=== PATIENT | female | born 1995 | race Caucasian/White ===

== ENCOUNTER 2016-11-30 01:56 | Inpatient (IN) | payer OTHER, MEDICAID ==
[~2016-11-30] VITALS: Ht 170.2 cm; Wt 79.8 kg
[2016-11-30] VITALS (7 sets, daily range): BP systolic 107–121; BP diastolic 57–90; PULSE 67–116; RESP 16–18; TEMP 97.4–98.6; O2SAT 93–97
--- NOTE | 2016-11-30 02:10 | NUR ---
Placed in room 08 . Placed on night monitor, blood pressure machine and pulse oximeter. To gown for exam. Side rails up. Report given to ROVERTO Antoine.
--- NOTE | 2016-11-30 02:15 | NUR ---
Patient brought in by mother, c/o cough x 1 week, patient cough, dry , lung sounds clear. Patient has hx of seizures, currently taking amoxicillin for an ear infection. No acute distress noted. Will continue to monitor.
--- NOTE | 2016-11-30 02:20 | NUR ---
ER at bedside examining patient.
[2016-11-30] MEDS ORDERED: PROMETHAZINE 6.25 MG/ CODEINE 10 MG/ 5 ML PO ONE (02:30)
--- NOTE | 2016-11-30 02:45 | NUR ---
Patient O2 88% on RA. informed. verbal order for 5L mask or 2L NC. Mother states she prefers mask over NC.
[2016-11-30] MEDS ORDERED: NACL 0.9% 1,000 ML IV ONE (02:59)
--- NOTE | 2016-11-30 03:00 | NUR ---
Patient O2 99%, tolerating O2 well. Will continue to monitor.
[2016-11-30 03:32] LABS: BILIRUBIN,URINE NEGATIVE (NEGATIVE); CLARITY/URINE CLEAR (CLEAR); COLOR,URINE YELLOW (YELLOW); GLUCOSE,URINE NEGATIVE (NEGATIVE); KETONES,URINE NEGATIVE (NEGATIVE); LEUKOCYTE ESTERASE ,URINE NEGATIVE (NEGATIVE); NITRITE, URINE NEGATIVE (NEGATIVE); PROTEIN URINE NEGATIVE (NEGATIVE)
[2016-11-30 03:51] LABS: BLOOD, URINE TRACE (NEGATIVE)
[2016-11-30 03:52] LABS: BACTERIA,URINE FEW /HPF (None Seen); RBC,URINE 0-3 /HPF (0-3); WBC,URINE 0-3 /HPF (0-3)
[2016-11-30 03:53] LABS: MUCUS,URINE None Seen /LPF (None Seen)
--- NOTE | 2016-11-30 03:55 | NUR ---
# 20 gauge angiocath placed to R AC. Use of asceptic technique. Opsite placed over site. Blood return noted. Blood for lab drawn from site. Two patient identifiers used. Flushed with 10 cc of normal saline. No evidence of infiltration noted. Patient tolerated well.
[2016-11-30 04:13] LABS: HEMATOCRIT 30.4 % (36-48); HEMOGLOBIN 10.4 g/dL (12.0-16.0); MEAN CORPUSCULAR HEMOGLOBIN 30 pg (27-31); MEAN CORPUSCULAR HGB CONC 34 % (32-36); MEAN CORPUSCULAR VOLUME 88 fL (79.0-98.0)
[2016-11-30] MEDS ORDERED: cefTRIAXone 1 GM IVPB PREMIX 50 ML IV ONE (04:15)
[2016-11-30 04:19] LABS: PLATELET COUNT (AUTO) 115 K/uL (130-430); RED BLOOD CELL COUNT(AUTO) 3.47 MIL/uL (4.2-6.2); RED CELL DISTRIBUTION WIDTH 12.5 % (9.0-15.0); WHITE BLOOD COUNT (AUTO) 7.6 K/uL (4.8-10.8)
[2016-11-30 04:20] LABS: CREATININE 0.66 mg/dL (0.55-1.30); POTASSIUM 3.3 mmol/L (3.5-5.1)
[2016-11-30 04:25] LABS: ALBUMIN 2.6 g/dL (3.4-4.8); TOTAL BILIRUBIN 0.3 mg/dL (0.0-1.0); TOTAL PROTEIN, SERUM 6.7 g/dL (6.4-8.3)
[2016-11-30 05:00] LABS: BAND % (MANUAL) 10 % (0-6); LYMPHOCYTES % (MANUAL) 27 % (20-46); MONOCYTES % (MANUAL) 11 % (0-11)
[2016-11-30 05:01] LABS: BASOPHILS % (MANUAL) 0 % (0-2); EOSINOPHILS % (MANUAL) 0 % (0-7)
[2016-11-30] MEDS ORDERED: ACETAMINOPHEN 325 MG TABLET PO PRN (05:45)
[2016-11-30] MEDS ORDERED: LEVALBUTEROL HCL 0.63 MG/3 ML VIAL.NEB IH ONE (06:00)
--- NOTE | 2016-11-30 06:12 | NUR ---
Transfer to [facility]. IV present no sign or symptom of infiltration.
--- NOTE | 2016-11-30 06:18 | NUR ---
ADMISSION NOTE Received patient from ER via [facility] under the care of Dr. Lewis. Patient admitted with diagnosis of Pneumonia. Patient is awake, alert, oriented X 3. Patient oriented to hospital room, call light, toileting, pain management and safety-teach back done.Mother at bedside. Patient informed that her nurse will be Vanesa LAYNE and that their room number is [id number]. Call light within reach.Keep comfortable.
--- NOTE | 2016-11-30 06:30 | NUR ---
Medication reconciliation completed with information provided by patient. Any prior medication reconciliation on file was reviewed and corrected.
[2016-11-30] MEDS ORDERED: DEPL250/5 PO ×2 (06:31→10:23)
[2016-11-30] MEDS ORDERED: CLON0.5T4 PO (06:31)
--- NOTE | 2016-11-30 06:40 | NUR ---
COLLECTION OF ADMISSION DATA,PHYSICAL ASSESSMENT /PNA /FLU DATA WERE DONE, ORIENTED TO TO ROOM SET UP TO MOM AND PATIENT.DROWSY BUT ANSWER SIMPLE QUESTIONS.
[2016-11-30] MEDS ORDERED: LEVOFLOXACIN 500 MG/D5W 100 ML IV SCH (07:00)
--- NOTE | 2016-11-30 07:20 | NUR ---
IVF STARTED TO RIGHT AC. SITE CLEAR.
--- NOTE | 2016-11-30 07:35 | NUR ---
REPORT GIVEN TO ROVERTO GUERRERO.
[2016-11-30] MEDS: 0.45% NACL 1,000 ML IV SCH ×3 (07:38→21:21)
--- NOTE | 2016-11-30 08:00 | NUR ---
initial notes rec patient sleep but arousable to stimuli.mother at the bedside at attend patient needs when needed.ivf infusing well on the r ac. no infiltration noted or s/c of infection. pt wit padded rails to prevent injury from seizure. voiding freely and assisted by mom to the br if needed. bed in low position and side rails up and locked. mother knows when to call for assistance .
[2016-11-30] MEDS: ALBUTEROL SULFATE 0.083% 2.5 MG/3 ML VIAL.NEB INH SCH ×2 (08:31→17:17)
--- NOTE | 2016-11-30 09:37 | NUR ---
Nutrition Update James Scale 18 noted. Pt admitted for pneumonia. Diet: regular BMI: 27.6 kg/m2 RD to follow per nutrition care standards.
--- NOTE | 2016-11-30 10:00 | NUR ---
rounds seen by dr ramirez and with orders. padded rails in placed. sleeps at intervals.
--- NOTE | 2016-11-30 10:14 | NUR ---
PULMONARY CONSULT Spoke with Anita regarding request for consultation with Dr. Candelario ([phone]) for reason: pneumonia.
[2016-11-30] MEDS ORDERED: methylPREDNISolone SOD SUCC/PF 62.5 MG/ML VIAL IVP ONE (10:15)
--- NOTE | 2016-11-30 11:07 | NUR ---
PATIENTS MOTHER REFUSED ABG... DR DE LA FUENTE AWARE AT THIS TIME
[2016-11-30] MEDS ORDERED: VALPROIC ACID ORAL SYRUP 250 MG/5 ML UDC PO SCH ×2 (12:00→21:00)
--- NOTE | 2016-11-30 12:00 | NUR ---
rounds ambulated to the br by mom and chevy well. no sob noted. call light within reached. pt's sister came and brought meds from home. will start home meds once cleared by pharmacy.
--- NOTE | 2016-11-30 13:00 | NUR ---
MEDS GIVEN MOTHER BROUGHT THE MEDS AND WANTED TO GIVE THE MEDS JULIO. EXPLAINED TO MOTHER THAT MEDS NEEDS TO BE VERIFY BY PHARMACIST. MEDS GIVEN BY MOTHER, KLONOPIN 1/4 TAB AND DEPAKENE 5CC GIVEN TO PT BY MOTHER.
--- NOTE | 2016-11-30 14:00 | NUR ---
rounds coughing at intervals when awake , no sob noted. mother and dad at bedside. turned repositioned for comfort.
[2016-11-30] MEDS ORDERED: clonazePAM 0.5 MG TABLET PO SCH (15:00)
--- NOTE | 2016-11-30 16:00 | NUR ---
rounds asleep at this time and meds not given. mom stated to wait till patient wakes up. resting comfortably.
[2016-11-30] MEDS: methylPREDNISolone SOD SUCC/PF 62.5 MG/ML VIAL IVP SCH ×2 (16:52→21:16)
--- NOTE | 2016-11-30 18:30 | NUR ---
closing notes pt still with productive cough at intervals. no sob noted. pt woke up and mom gave the meds with supervision. non verbally responsive but selective when she wants to say something. refused o2 at this time and pulse ox was attached and sat bet 92 to 96 %.
[2016-11-30] MEDS: KLONOPIN 0.5 MG PO SCH ×2 (19:10→23:23)
[2016-11-30] MEDS: [UNRECOGNIZED DRUG - OTHER] PO SCH ×2 (19:11→23:25)
--- NOTE | 2016-11-30 20:00 | NUR ---
INITIAL NOTES: PT IS AWAKE, ALERT; TALKED TO THE PT , BUT NOTICED THAT SHE IS NOT TALKING BACK , AT THE SAME TIME PT IS TALKING TO HER MOTHER ; PER MOTHER PT IS SHY ; VITALS ARE STABLE ; DENIED ANY PAIN ; DENIED ANY SOB ; ON ROOM AIR AT THIS TIME, SAT IS 94% , PER MOM PTS NOSE IS VERY UNCOMFORTABLE ; WILL CONTINUE TO MONITOR AND IF NEEDED WILL PLACE PT TO USE O2 2 L NC ; IV FLUID IS INFUSING WELL ; MOTHER AT BEDSIDE ALL TIMES ; WILL CONTINUE TO MONITOR.
[2016-11-30] MEDS: LACTOBACILLUS RHAMNOSUS GG 1 CAP CAPSULE PO SCH (21:15)
--- NOTE | 2016-11-30 21:20 | NUR ---
MEDICATION: DUE MEDS GIVEN EXCEPT KLONOPIN AND VALPROIC ACID ; PER MOTHER PT RECEIVED HER DOSE AT 1910 EARLIER AND NEXT DOSE ALWAYS SHE GIVE AT 5 . WILL GIVE PER PTS SCHEDULE AT HOME
--- NOTE | 2016-11-30 23:25 | NUR ---
MEDICATION: DUE KLONOPIN AND VALPROIC ACIDS ARE GIVEN PER MOTHERS REQUEST .PT IS COMFORTABLE.PT IS ON O2 2L NC AT THIS TIME; WILL CONTINUE TO MONITOR.
[2016-12-01] VITALS: BP 119/72; PULSE 74; RESP 17; TEMP 97.8; O2SAT 100
--- NOTE | 2016-12-01 01:25 | NUR ---
RN ROUNDS: PT IS SLEEPING, MOTHER AT BEDSIDE ; NOT IN ANY ACUTE DISTRESS; WILL CONTINUE TO MONITOR.
--- NOTE | 2016-12-01 03:10 | NUR ---
RN ROUNDS: PT IS SLEEPING; MOTHER AT BEDSIDE ;NO IN ANY DISTRESS; WILL CONTINUE TO MONITOR.
[2016-12-01 04:20] VITALS: BP 117/68; PULSE 76; RESP 16; TEMP 98.6; O2SAT 100
--- NOTE | 2016-12-01 05:06 | NUR ---
RN ROUNDS: PT IS SLEEPING COMFORTABLY ; NOT IN ANY ACUTE DISTRESS; WILL CONTINUE TO MONITOR.
[2016-12-01] MEDS: methylPREDNISolone SOD SUCC/PF 62.5 MG/ML VIAL IVP SCH ×3 (06:03→23:31)
--- NOTE | 2016-12-01 06:15 | NUR ---
RN NOTES: PT IS SLEEPING COMFORTABLY ; NOT IN ANY ACUTE DISTRESS; DUE SOLUMEDROL GIVEN , WILL CHECK WITH PHARMACY IS IT OK TO GIVE LEVAQUIN AT THIS TIME SINCE YESTERDAYS DOSE WAS LATE .
[2016-12-01] MEDS: 0.45% NACL 1,000 ML IV SCH ×2 (06:45→09:48)
--- NOTE | 2016-12-01 06:50 | NUR ---
RN NOTES: TALKED WITH FEDERICO THE PHARMACIST ; FEDERICO ASKED TO HOLD LEVAQUIN AND HE WILL CHANGE THE TIME .
[2016-12-01] MEDS: ALBUTEROL SULFATE 0.083% 2.5 MG/3 ML VIAL.NEB INH SCH ×2 (07:16→13:59)
--- NOTE | 2016-12-01 07:25 | NUR ---
CLOSING NOTES: PT IS AWAKE, NOT IN ANY ACUTE DISTRESS; NO SEIZURE ACTIVITIES NOTED DURING THIS SHIFT ; MOTHER AT BEDSIDE . REPORT GIVEN TO RN AT BEDSIDE .
[2016-12-01 08:00] VITALS: BP 133/67; PULSE 96; RESP 18; TEMP 98; O2SAT 92
--- NOTE | 2016-12-01 08:00 | NUR ---
initial notes rec patient asleep wth mom at bedside. ivf infusing well on the r ac/ no infiltration noted. coughing at intervals with o2 at 2 liters via nasal cannula. padded rails is off as per mom stated that she does not have episode of seizures. seen by dr ramirez. bed in low position and side rails up and locked. call light within reached by mother and calls for assistance as needed.
--- NOTE | 2016-12-01 10:27 | NUR ---
CONSULTATION CALLED: REASON FOR CONSULTATION: PNEUMONIA WAS CONSULT CALLED: YES PERSON WHO WAS NOTIFIED: MOLLY CONSULTING PHYSICIAN: KASEY
--- NOTE | 2016-12-01 10:30 | NUR ---
rounds meds not given at scheduled time. mother will call when patient is awake and mother's requested time. ambulating with pt on the hallway
[2016-12-01] MEDS: guaiFENesin 200 MG/CODEINE 20 MG/ 10 ML UDC PO PRN ×2 (11:58→23:43)
[2016-12-01] MEDS: LACTOBACILLUS RHAMNOSUS GG 1 CAP CAPSULE PO SCH ×2 (11:58→23:47)
[2016-12-01] MEDS: [UNRECOGNIZED DRUG - OTHER] PO SCH ×4 (11:59→23:48)
[2016-12-01] MEDS: KLONOPIN 0.5 MG PO SCH ×3 (12:00→21:18)
[2016-12-01 12:30] VITALS: BP 126/67; PULSE 64; RESP 17; TEMP 97.6; O2SAT 94
--- NOTE | 2016-12-01 13:00 | NUR ---
rounds sitting at the recliner and mother at bedside.no sob noted.
--- NOTE | 2016-12-01 14:00 | NUR ---
rounds up sitting in a recliner chair and chevy well. non productive cough at intervals noted. no sob noted.
[2016-12-01 16:00] VITALS: BP 123/67; PULSE 89; RESP 19; TEMP 97.6; O2SAT 96
--- NOTE | 2016-12-01 16:00 | NUR ---
rounds pt asleep, mom at bedside.
--- NOTE | 2016-12-01 18:00 | NUR ---
rounds seen by dr garvey and with orders.
[2016-12-01] MEDS: LEVOFLOXACIN 500 MG/D5W 100 ML IV SCH (18:12)
--- NOTE | 2016-12-01 19:00 | NUR ---
closing notes ambulated to the br with mom assisting patient. no sob noted. still coughing but no sob noted. no acute distress noted.
--- NOTE | 2016-12-01 19:59 | NUR ---
opening note Received report from day shift nurse. Patient is calm and cooperative, no complaints of pain at this time, in supine position, family at bedside participating in care. BP 135/67, RR 17, o2 sat 100% r/a, HR66, RR17, non labored. Frequent visual checks to be made, continue to monitor
[2016-12-01 20:00] VITALS: BP 135/67; PULSE 66; RESP 17; TEMP 96.7; O2SAT 100
--- NOTE | 2016-12-01 22:00 | NUR ---
ROUNDS Patient is supine position, able to reposition self. Family participating in care, no complaints of pain, no signs of acute distress noted. bed in low position, call light within reach, frequent visual checks made, continue to monitor
[2016-12-02 00:35] VITALS: BP 110/60; PULSE 68; RESP 17; TEMP 97.7; O2SAT 97
--- NOTE | 2016-12-02 02:03 | NUR ---
Rounds Patient is sleeping comfortably, no signs of respiratory distress. Family is participating in care at bedside. No signs of pain, bed in low position, call light is within reach, frequent visual checks are made, continue to monitor
[2016-12-02 04:00] VITALS: BP 108/58; PULSE 72; RESP 17; TEMP 98.7; O2SAT 98
[2016-12-02] MEDS: 0.45% NACL 1,000 ML IV SCH (04:43)
[2016-12-02] MEDS: methylPREDNISolone SOD SUCC/PF 62.5 MG/ML VIAL IVP SCH ×2 (06:36→13:24)
--- NOTE | 2016-12-02 06:48 | NUR ---
closing note Report given to day RN, no complaints of pain, all am meds given lungs cta at this time. bed in low position, call light within reach, care endorsed
[2016-12-02 07:22] LABS: BASOPHILS % (AUTO) 0.1 % (0.0-2.0); HEMATOCRIT 31.3 % (36-48); HEMOGLOBIN 10.3 g/dL (12.0-16.0); LYMPHOCYTES # (AUTO) 1.1 K/uL (1.0-5.5); LYMPHOCYTES % (AUTO) 10.2 % (20.5-51.5); MEAN CORPUSCULAR HEMOGLOBIN 30 pg (27-31); MEAN CORPUSCULAR HGB CONC 33 % (32-36); MEAN CORPUSCULAR VOLUME 90 fL (79.0-98.0); MONOCYTES # (AUTO) 0.8 K/uL (0.0-1.0); MONOCYTES % (AUTO) 7.3 % (1.7-9.3); NEUTROPHILS # (AUTO) 8.7 K/uL (1.8-7.7); NEUTROPHILS % (AUTO) 82.4 % (40.0-70.0); PLATELET COUNT (AUTO) 151 K/uL (130-430); RED BLOOD CELL COUNT(AUTO) 3.47 MIL/uL (4.2-6.2); RED CELL DISTRIBUTION WIDTH 12.6 % (9.0-15.0); WHITE BLOOD COUNT (AUTO) 10.6 K/uL (4.8-10.8)
[2016-12-02 07:24] LABS: CALCIUM 8.6 mg/dL (8.4-11.0); CREATININE 0.52 mg/dL (0.55-1.30); POTASSIUM 4.2 mmol/L (3.5-5.1)
[2016-12-02] MEDS: ALBUTEROL SULFATE 0.083% 2.5 MG/3 ML VIAL.NEB INH SCH ×3 (07:28→19:57)
--- NOTE | 2016-12-02 08:00 | NUR ---
PATIENT SLEEPING EASILY AROUSABLE, NO SIGN OF DISTRESS OR SOB, NO PAIN VERBALIZED, MOTHER AT BEDSIDE, IV SITE RUNNING FLUID, SKIN INTACT, INFORMED DR COBIAN OF [facility] FROM 2 DAYS AGO, HE IS AWARE NO NEW ORDERS, PATIENT HAS DRY NONPRODUCTIVE COUGH REFUSED ROBITUSSIN AT THIS TIME, CURRENTLY LYING SUPINE HOB ELEVATED BED IN LOW POSITION CALL LIGHT IN APLCE SIDE RAILS UP
[2016-12-02] MEDS: KLONOPIN 0.5 MG PO SCH ×3 (08:20→20:27)
[2016-12-02] MEDS: LACTOBACILLUS RHAMNOSUS GG 1 CAP CAPSULE PO SCH ×2 (08:20→20:27)
--- NOTE | 2016-12-02 11:59 | NUR ---
PATIENT SLEEPING EASILY AROUSABLE, MOTHER AT BEDSIDE SLEEPING ON RECLINER, NO SIGN OF DISTRESS OR PAIN VERBALIZED, WILL CONTINUE TO MONITOR
[2016-12-02 12:00] VITALS: BP 106/57; PULSE 88; RESP 16; TEMP 97.5; O2SAT 99
[2016-12-02 16:53] VITALS: BP 124/73; PULSE 84; RESP 16; TEMP 97.3; O2SAT 98
[2016-12-02] MEDS: [UNRECOGNIZED DRUG - OTHER] PO SCH ×3 (17:23→21:00)
[2016-12-02] MEDS: LEVOFLOXACIN 500 MG/D5W 100 ML IV SCH (17:23)
--- NOTE | 2016-12-02 17:47 | NUR ---
PATIENT AWAKE ALERT EATING DINNER WITH MOTHER AT BEDSIDE, OTHER FAMILY MEMBERS STEPPED INTO ROOM, NO COMPLAINT OF PAIN OR DISTRESS NO SOB, PATIENT SITTING UP IN BED HOB ELEVATED BED IN LOW POSITION CALL LIGHT IN PLACE SIDE RAILS UP
--- NOTE | 2016-12-02 19:50 | NUR ---
Opening note Report received from day shift nurse. Patient assisted with disconnect of IV so that she could take a shower. She has her mother assisting in care at bedside. No signs of respiratory distress noted, no complaints of pain, patient able to reposition self. No other needs expressed at this time, frequent visual checks to be made, continue to monitor
[2016-12-02 20:05] VITALS: BP 126/59; PULSE 62; RESP 16; TEMP 96.7; O2SAT 100
--- NOTE | 2016-12-02 22:40 | NUR ---
Rounds Patient is in supine position, bed in low position call light within reach. NO complaints of pain, no signs of acute distress. Family participating in care. Continue to monitor
[2016-12-03 00:44] VITALS: BP 129/70; PULSE 57; RESP 17; TEMP 97.8; O2SAT 98
[2016-12-03] MEDS: ALBUTEROL SULFATE 0.083% 2.5 MG/3 ML VIAL.NEB INH SCH ×4 (01:31→19:39)
[2016-12-03 04:00] VITALS: BP 127/64; PULSE 60; RESP 16; TEMP 98.6; O2SAT 98
[2016-12-03] MEDS: 0.45% NACL 1,000 ML IV SCH ×3 (05:32→22:19)
--- NOTE | 2016-12-03 06:56 | NUR ---
closing note report given to day shift RN. Patient shows no signs of pain or acute distress, care endorsed
--- NOTE | 2016-12-03 08:00 | NUR ---
PATIENT SLEEPING EASILY AROUSABLE MOTHER AT BEDSIDE, NO SIGN OF DISTRESS OR SOB NO PAIN VERBALIZED, PATIENT LYING WITH HOB ELEVATED BED IN LOW POSITION CALL LIGHT IN APLCE SIDE RAILS UP
[2016-12-03] MEDS: LACTOBACILLUS RHAMNOSUS GG 1 CAP CAPSULE PO SCH ×2 (09:57→22:19)
[2016-12-03] MEDS: KLONOPIN 0.5 MG PO SCH ×3 (09:57→22:22)
[2016-12-03 11:10] VITALS: BP 113/61; PULSE 74; RESP 20; TEMP 97; O2SAT 93
--- NOTE | 2016-12-03 14:00 | NUR ---
DISCHARGE HOME ORDERED PER DR DE LA FUENTE PLACED IF DR HECTOR LIZ
[2016-12-03] MEDS ORDERED: LEVO500T20 PO (14:09)
[2016-12-03 14:47] VITALS: BP 113/61; PULSE 74; RESP 20; TEMP 97; O2SAT 98
--- NOTE | 2016-12-03 15:00 | NUR ---
PATIENT ALERT AWAKE AMBULATED HALLS WITH MOTHER SLIGHT SOB, OXYGEN SATURATION 96% MOTHER CONCERNED IF TAKES PATIENT HOME SHE WILL BECOME SHORT OF BREATH AND NOT KNOW WHAT TO DO, SHE REFUSES TO LEAVE HOME WITH DAUGHTER UNTIL A DOCTOR SPEAKS TO HER PERSONALLY
--- NOTE | 2016-12-03 15:30 | NUR ---
CURRENTLY PATIENT SITTING UP IN BED NO SIGN OF SOB, BED IN LOW POSITION CALL LIGHT IN PALCE SIDE RAILS UP, INFORMED ON THE PHONE DOCTOR LAMONTE OF MOTHERS CONCERN BEFORE SHE GOES HOME, DR ABURTO SAID TO CALL THE PRIMARY DOTOR ON PATIENTS LIST, PAGED DR DE LA FUENTE
[2016-12-03 16:00] VITALS: BP 118/64; PULSE 68; RESP 20; TEMP 97.6; O2SAT 99
--- NOTE | 2016-12-03 17:24 | NUR ---
[address] DE LA FUENTE ON PHONE ABOUT MOTHERS CONCERN, DR DE LA FUENTE ORDERED TO HOLD DISCHARGE UNTIL SHE IS SEEN BY DOCTOR, MOTHER AWARE, CURRENTLY PATIENT LYING IN BED SUPINE, HOB ELEVATED NO SIGN OF SOB OR PAIN VERBALIZED, BED IN LOW POSITION CALL LIGHT IN PLACE SIDE RAILS UP
[2016-12-03] MEDS: [UNRECOGNIZED DRUG - OTHER] PO SCH ×3 (18:27→22:22)
[2016-12-03] MEDS: LEVOFLOXACIN 500 MG/D5W 100 ML IV SCH (18:28)
[2016-12-03 20:27] VITALS: BP 132/71; PULSE 72; RESP 20; TEMP 98.1; O2SAT 97
--- NOTE | 2016-12-03 20:39 | NUR ---
Patient awake sitting up in bed on med - neb bx tx , 02 SAT 97 % respirations regular also unlabored , skin dry warm on seizure precautions side rails padded / . Mother here with patient .
--- NOTE | 2016-12-04 | NUR ---
Patient resting skin dry warm respirations unlabored / .
[2016-12-04 00:41] VITALS: BP 120/67; PULSE 60; RESP 16; TEMP 98.9; O2SAT 96
[2016-12-04] MEDS: ALBUTEROL SULFATE 0.083% 2.5 MG/3 ML VIAL.NEB INH SCH ×3 (01:18→19:40)
--- NOTE | 2016-12-04 03:49 | NUR ---
Hourly Rounding patient Mother @ the bedside , assist for position change kept clean and dry as needed / .
--- NOTE | 2016-12-04 03:50 | NUR ---
SEIZURE precautions in place anti - epileptic medication given as ordered tolerated / .
[2016-12-04 04:06] VITALS: BP 118/72; PULSE 56; RESP 17; TEMP 98.7; O2SAT 98
--- NOTE | 2016-12-04 06:04 | NUR ---
Patient resting Mother sleeping @ the bedside call bailey with patient , no acute distress / .
--- NOTE | 2016-12-04 07:50 | NUR ---
INITIAL NOTES RECEIVED PATIENT ON BED ASLEEP WITH MOTHER AT BEDSIDE.BREATHING EVEN AND UNLABORED WITH 02 AT 2L/M VIA NASAL CANNULA.NO ACUTE DISTRESS.IVF INFUSING WELL;NO SIGNS AND SYMPTOMS OF INFILTRATION.SAFETY AND FALL PRECAUTIONS IN PLACE.CALL LIGHT WITHIN REACH
[2016-12-04 07:56] VITALS: BP 135/74; PULSE 64; RESP 16; TEMP 97.2; O2SAT 99
[2016-12-04] MEDS: LACTOBACILLUS RHAMNOSUS GG 1 CAP CAPSULE PO SCH ×2 (08:57→21:52)
[2016-12-04] MEDS: KLONOPIN 0.5 MG PO SCH ×3 (08:58→21:56)
--- NOTE | 2016-12-04 10:30 | NUR ---
NOTES CHECKED PATIENT;NEEDS ATTENDED TO
--- NOTE | 2016-12-04 10:59 | NUR ---
HCP/PA: Chanda Garrison made her aware of discharge home. Addendum: 12/04/16 at 1103 by Jade Lopez DP Meli made aware of DME order for nebulizer and will work on order.
[2016-12-04 12:00] VITALS: BP 107/52; PULSE 52; RESP 21; TEMP 97.5; O2SAT 97
--- NOTE | 2016-12-04 12:40 | NUR ---
NOTES LUNCH SERVED;ASSISTED BY MOTHER WITH FEEDING;TOLERATED WELL
--- NOTE | 2016-12-04 15:00 | NUR ---
NOTES PER MOTHER PATIENT IS COMPLAINING OF PAINFUL AND FREQUENT URINATION;NO FEVER;ENCOURAGED TO INCREASE FLUID INTAKE.WILL INFORM
--- NOTE | 2016-12-04 15:12 | NUR ---
NOTES PAGED DR. MUELLER;AWAITING FOR CALL BACK
--- NOTE | 2016-12-04 15:25 | NUR ---
NOTES DR. DE LA FUENTE(COVERING FOR DR. MUELLER) CALLED;INFORMED REGARDING PATIENT'S COMPLAIN;WITH ORDER FOR URINALYSIS;CARRIED OUT
--- NOTE | 2016-12-04 15:40 | NUR ---
NOTES INFORMED PATIENT'S MOTHER REGARDING ORDER TO COLLECT URINE SPECIMEN FOR URINALYSIS;SPECIMEN BOTTLE GIVEN;VERBALIZED UNDERSTANDING
[2016-12-04 16:00] VITALS: BP 119/81; PULSE 88; RESP 20; TEMP 97.2; O2SAT 97
--- NOTE | 2016-12-04 18:20 | NUR ---
CLOSING NOTES PATIENT ON BED AWAKE.BREATHING EVEN AND UNLABORED.NO ACUTE DISTRESS.IVF INFUSING WELL;NO SIGNS AND SYMPTOMS OF INFILTRATION.SAFETY AND FALL PRECAUTIONS IN PLACE.CALL LIGHT WITHIN REACH.WILL ENDORSE TO NEXT SHIFT ACCORDINGLY
[2016-12-04 19:07] LABS: BILIRUBIN,URINE NEGATIVE (NEGATIVE); BLOOD, URINE 3+ (NEGATIVE); CLARITY/URINE HAZY (CLEAR); COLOR,URINE YELLOW (YELLOW); GLUCOSE,URINE NEGATIVE (NEGATIVE); KETONES,URINE NEGATIVE (NEGATIVE); LEUKOCYTE ESTERASE ,URINE NEGATIVE (NEGATIVE); NITRITE, URINE NEGATIVE (NEGATIVE); PROTEIN URINE NEGATIVE (NEGATIVE); UROBILINOGEN,URINE 0.2 (0.2-1.0)
--- NOTE | 2016-12-04 19:30 | NUR ---
initial nursing notes: Patient is awake. Patient's mother is at the bedside. Patient has an IV fluid infusing on the right upper extremity IV access. Patient has no signs of discomfort.
[2016-12-04 19:40] LABS: BACTERIA,URINE FEW /HPF (None Seen); RBC,URINE >100 /HPF (0-3); WBC,URINE 0-3 /HPF (0-3)
[2016-12-04 19:41] LABS: MUCUS,URINE None Seen /LPF (None Seen)
[2016-12-04 19:53] VITALS: BP 104/72; PULSE 82; RESP 15; TEMP 97; O2SAT 100
[2016-12-04] MEDS: [UNRECOGNIZED DRUG - OTHER] PO SCH ×2 (21:00→21:55)
--- NOTE | 2016-12-04 21:30 | NUR ---
nursing rounds: Patient ambulates to the bathroom with assistance. No falls and no injuries noted.
--- NOTE | 2016-12-04 23:30 | NUR ---
nursing rounds: Patient resting in bed. Patient's mother at the bedside.
[2016-12-05] VITALS: BP 93/42; PULSE 75; RESP 17; TEMP 97.5; O2SAT 97
[2016-12-05] MEDS: ALBUTEROL SULFATE 0.083% 2.5 MG/3 ML VIAL.NEB INH SCH ×3 (00:18→14:44)
--- NOTE | 2016-12-05 01:30 | NUR ---
nursing rounds: Patient asleep in bed. No shortness of breath noted.
--- NOTE | 2016-12-05 03:30 | NUR ---
nursing rounds: Patient sleeping in bed. No seizure episode noted.
[2016-12-05 04:24] VITALS: BP 96/48; PULSE 76; RESP 18; TEMP 97.6; O2SAT 98
--- NOTE | 2016-12-05 05:30 | NUR ---
nursing rounds: Patient resting in bed. No respiratory distress noted. Patient's mother at the bedside, able to make patient's needs known.
[2016-12-05 07:27] VITALS: BP 106/54; PULSE 67; RESP 17; TEMP 96.6; O2SAT 95
--- NOTE | 2016-12-05 07:34 | NUR ---
closing nursing notes: Patient is resting in bed. Patient is awake, alert and oriented to name. Patient;s mother at the bedside. Patient has no signs of pain/discomfort. Patient is in no acute respiratory distress. Saline lock intact, no bleeding and no infiltration noted. No episodes of fall and no injuries throughout the shift supervisor film processing. Provided nursing report to incoming morning shift nursesShruthi RN, at patient's bedside. Addendum: 12/05/16 at 0806 by Ross Bray RN closing nursing notes: Patient is resting in bed. Patient is awake, alert and oriented to name. Patient's mother is at the bedside. Patient has no signs of pain/discomfort. Patient is in no acute respiratory distress. Saline lock intact, no bleeding and no infiltration noted. No episodes of fall and no injuries throughout the shift supervisor film processing. Provided nursing report to incoming morning shift nurseShruthi RN, at patient's bedside.
--- NOTE | 2016-12-05 07:35 | NUR ---
INITIAL NOTES RECEIVED PATIENT ON BED ASLEEP.BREATHING EVEN AND UNLABORED.NO ACUTE DISTRESS.IV SALINE LOCK INTACT AND PATENT;NO SIGNS AND SYMPTOMS OF INFILTRATION.SAFETY AND AND FALL PRECAUTIONS IN PLACE.CALL LIGHT WITHIN REACH
[2016-12-05] MEDS: KLONOPIN 0.5 MG PO SCH (09:57)
[2016-12-05] MEDS: [UNRECOGNIZED DRUG - OTHER] PO SCH (09:58)
[2016-12-05] MEDS: LACTOBACILLUS RHAMNOSUS GG 1 CAP CAPSULE PO SCH (09:58)
--- NOTE | 2016-12-05 10:00 | NUR ---
NOTES CHECKED PATIENT;NEEDS ATTENDED TO
[2016-12-05] MEDS ORDERED: ALBU8.5H8 INH (10:34)
[2016-12-05] MEDS ORDERED: ALBU2.5V7 INH (10:40)
[2016-12-05 10:47] VITALS: BP 106/54; PULSE 67; RESP 17; TEMP 96.6; O2SAT 95
[2016-12-05 11:32] VITALS: BP 107/65; PULSE 59; RESP 19; TEMP 96.4; O2SAT 97
--- NOTE | 2016-12-05 12:40 | NUR ---
NOTES PATIENT WENT TO THE RESTROOM WITH ASSISTANCE OF MOTHER;TOLERATED ACTIVITY WELL
[2016-12-05 14:29] VITALS: Ht 170.2 cm; Wt 79.8 kg
--- NOTE | 2016-12-05 15:21 | NUR ---
D/C Patient Patient given medication reconciliation form and D/C instructions. Exit Care provided. Patient verbalized understanding. MD discussed with patient the results and treatment provided. Ambulatory with steady gait for discharge to home. Patient in stable condition, ID band removed. IV catheter removed, intact and dressing applied, no active bleeding. Rx of albuterol,levaquin and pro air hfa given. Patient educated on pain management. All belongings sent with patient.
[2016-12-05 15:23] VITALS: BP 111/58; PULSE 84; RESP 18; TEMP 96.4; O2SAT 92
--- NOTE | 2016-12-08 11:40 | NUR ---
Discharge Follow Up Phone Call: LAB[facility]S called and spoke with pt's mother, Sun ([phone]). Pt's mother states that pt is doing well; pt's prescriptions have been filled; there are no questions regarding discharge or medication instructions; pt attended PCP appointment on 12/07/16; pt received nebulizer on 12/04/16; pt received first home health visit on 12/06/16. Pt's mother did not express any other needs or concerns and denied the need for additional follow up at this time. No further follow up phone calls required at this time.
== END 2016-12-05 15:00 | disposition home or self-care (01) | DRG 194 ==
LOC: SED 01:56 → SMU 05:55
DX: J18.9 Pneumonia, unspecified organism (principal); E44.1 Mild protein-calorie malnutrition; G40.909 Epilepsy, unspecified, not intractable, without status epilepticus; R62.50 Unspecified lack of expected normal physiological development in childhood; R09.02 Hypoxemia; Z87.820 Personal history of traumatic brain injury; Z88.8 Allergy status to other drugs, medicaments and biological substances; Z68.27 Body mass index [BMI] 27.0-27.9, adult
CPT/HCPCS: 36415; 71010; 80048; 80053; 81000-TC; 83605; 85007; 85025; 85027; 87040-TC; 87086; 94640; 94760; 96361; 96365; 97116-GP; 99285; J0696; J1956; J2930; J7030

== ENCOUNTER 2019-09-09 22:08 | Emergency (ER) | payer OTHER, MEDICAID ==
[~2019-09-09] VITALS: Ht 170.2 cm; Wt 88.0 kg
[~2019-09-09 22:08] MED LIST: ALBU2.5V7 INH; ALBU8.5H8 INH; CLON0.5T12 PO; DEPL250/5 PO; LEVO500T20 PO
[2019-09-09 22:18] VITALS: BP_SYST 150
--- NOTE | 2019-09-09 22:30 | NUR ---
Patient to ER bed 6 to gown for evaluation. Side rails up.
--- NOTE | 2019-09-09 22:40 | NUR ---
Pt brought in by mother. Pt awake, alert, oriented x4. Pt's mother states that she has developmental disability, and sometimes is non-verbal. Pt mother states that pt has had chills, general body aches, fever since yesterday evening. Mother states that she took temperature at home and it read 102.7 degrees F. Pt mother states that patient denied any chest pain, nausea, vomiting, diarrhea or shortness of breath. Mother states that pt began with mild cough last night while eating and she was concerned that some food or liquid may have entered the patients lungs. Mother of patient states that patient has been holding her urine periodically and she noticed a brownish discharge last few time she assisted her to use the restroom. Pt VSS, restin gin ED bed with mother bedside, holding hand for comfort. Siderails up and seizure precautions in place.
--- NOTE | 2019-09-09 22:40 | NUR ---
ER at bedside examining patient.
--- NOTE | 2019-09-09 23:00 | NUR ---
Pt Resting in Ed bed comfortably. Mother bedside comforting daughter.
--- NOTE | 2019-09-10 | NUR ---
Pt Resting in Ed bed comfortably. Mother bedside comforting daughter.
--- NOTE | 2019-09-10 01:00 | NUR ---
Pt Resting in Ed bed comfortably. Mother bedside comforting daughter.
[2019-09-10] MEDS ORDERED: NACL 0.9% 1,000 ML IV ONE (01:15)
[2019-09-10] MEDS ORDERED: cefTRIAXone 1 GM IVPB PREMIX 50 ML IV ONE (01:15)
[2019-09-10 01:40] LABS: BASOPHILS % (AUTO) 0.5 % (0.0-2.0); HEMATOCRIT 35.2 % (36-48); LYMPHOCYTES # (AUTO) 1.8 K/uL (1.0-5.5); MEAN CORPUSCULAR HEMOGLOBIN 30 pg (27-31); MEAN CORPUSCULAR HGB CONC 34 % (32-36); MEAN CORPUSCULAR VOLUME 89 fL (79.0-98.0); MONOCYTES # (AUTO) 1.3 K/uL (0.0-1.0); MONOCYTES % (AUTO) 24.6 % (1.7-9.3); NEUTROPHILS # (AUTO) 2.2 K/uL (1.8-7.7); NEUTROPHILS % (AUTO) 40.9 % (40.0-70.0); PLATELET COUNT (AUTO) 115 K/uL (130-430); RED BLOOD CELL COUNT(AUTO) 3.97 MIL/uL (4.2-6.2); RED CELL DISTRIBUTION WIDTH 13.1 % (9.0-15.0); WHITE BLOOD COUNT (AUTO) 5.4 K/uL (4.8-10.8)
[2019-09-10 02:06] LABS: CALCIUM 8.2 mg/dL (8.4-11.0); CREATININE 0.87 mg/dL (0.55-1.30); POTASSIUM 3.6 mmol/L (3.5-5.1)
--- NOTE | 2019-09-10 02:10 | NUR ---
Pt Resting in Ed bed comfortably. Mother bedside comforting daughter.
[2019-09-10 02:11] LABS: ALBUMIN 3.5 g/dL (3.4-4.8); TOTAL BILIRUBIN 0.4 mg/dL (0.0-1.0)
--- NOTE | 2019-09-10 03:15 | NUR ---
Pt Resting in Ed bed comfortably. Mother bedside comforting daughter.
[2019-09-10 03:45] VITALS: BP_SYST 130
--- NOTE | 2019-09-10 03:45 | NUR ---
Patient given written and verbal discharge instructions and verbalizes understanding. ER MD discussed with patient the results and treatment provided. Patient in stable condition. ID arm band removed. IV catheter removed intact and dressing applied, no active bleeding. Rx of Zithromax given. Patient educated to follow up with PMD. Pain Scale 0/10. Opportunity for questions provided and answered. Medication side effect fact sheet provided.
== END 2019-09-10 03:45 | disposition home or self-care (01) ==
LOC: SED 22:08
DX: J20.9 Acute bronchitis, unspecified (principal); Z88.8 Allergy status to other drugs, medicaments and biological substances; Z79.899 Other long term (current) drug therapy
CPT/HCPCS: 36415; 71045; 80053; 83605; 85025; 86710; 87040; 93005; 96365; 99284; J0696; J7030

== ENCOUNTER 2019-09-12 08:34 | Emergency (ER) | payer OTHER, MEDICAID ==
[~2019-09-12] VITALS: Ht 172.7 cm; Wt 77.1 kg
[2019-09-12 08:34] VITALS: BP_SYST 112
[2019-09-12 09:26] LABS: BASOPHILS % (AUTO) 0.5 % (0.0-2.0); HEMOGLOBIN 11.1 g/dL (12.0-16.0); LYMPHOCYTES # (AUTO) 0.7 K/uL (1.0-5.5); LYMPHOCYTES % (AUTO) 12.1 % (20.5-51.5); MEAN CORPUSCULAR HEMOGLOBIN 30 pg (27-31); MEAN CORPUSCULAR HGB CONC 34 % (32-36); MEAN CORPUSCULAR VOLUME 89 fL (79.0-98.0); MONOCYTES # (AUTO) 0.3 K/uL (0.0-1.0); NEUTROPHILS # (AUTO) 4.5 K/uL (1.8-7.7); NEUTROPHILS % (AUTO) 81.4 % (40.0-70.0); RED BLOOD CELL COUNT(AUTO) 3.72 MIL/uL (4.2-6.2); RED CELL DISTRIBUTION WIDTH 13.1 % (9.0-15.0); WHITE BLOOD COUNT (AUTO) 5.6 K/uL (4.8-10.8)
[2019-09-12 09:41] LABS: CALCIUM 8.1 mg/dL (8.4-11.0); CREATININE 0.78 mg/dL (0.55-1.30); INR 1.1 (0.8-1.2); POTASSIUM 3.3 mmol/L (3.5-5.1); PROTHROMBIN TIME 10.7 SECS (9.5-12.5)
[2019-09-12 09:46] LABS: ALBUMIN 3.1 g/dL (3.4-4.8); TOTAL BILIRUBIN 0.2 mg/dL (0.0-1.0)
[2019-09-12 10:42] LABS: PLATELET COUNT (AUTO) 80 K/uL (130-430)
[2019-09-12] MEDS ORDERED: cefTRIAXone 1 GM VIAL IM ONE (11:00)
[2019-09-12] MEDS ORDERED: IBUPROFEN 800 MG TABLET PO ONE (11:15)
[2019-09-12 15:37] VITALS: BP_SYST 126
== END 2019-09-12 15:37 | disposition home or self-care (01) ==
LOC: SED 08:34
DX: J18.9 Pneumonia, unspecified organism (principal); Z88.8 Allergy status to other drugs, medicaments and biological substances; Z79.899 Other long term (current) drug therapy
CPT/HCPCS: 36415; 71045; 80053; 81025; 84145; 84703; 85025; 85610; 85730; 96372; 99284; J0696